=== PATIENT | male | born 1955 | race Caucasian/White ===

== ENCOUNTER 2017-03-04 00:05 | Emergency (ER) | payer OTHER ==
[2017-03-04] MEDS ORDERED: Tetracaine 0.5% 2 ML Bottle EYERT ONE (00:16)
[2017-03-04] MEDS ORDERED: Tetracaine 0.5% 2 ML Bottle ONE (00:18)
--- NOTE | 2017-03-04 00:25 | EDM.PDOC ---
ED HPI EYE COMPLAINT - General Chief Complaint: Eye Problems Stated Complaint: eye pain/burning Time Seen by Provider: 03/04/17 00:10 Source: Reports: Patient History Limitations: Reports: No limitations - History of Present Illness INITIAL COMMENTS - FREE TEXT/NARRATIVE: Bilateral eye pain and redness..Was using cutting torch today. No known injury or foreign body Timing/Duration: Reports: Hour(s): Location: both Quality: Reports: Burning Severity: moderate Context: Reports: welding arc ED ROS GENERAL - Review of Systems Review Of Systems: See Below HEENT: Reports: Eye pain ED EXAM GENERAL W FULL EYE - Physical Exam Exam: See Below Exam Limited By: No limitations General Appearance: alert, mild distress Conjunctiva & Sclera: bilateral: injected Cornea Exam: bilateral: normal appearance, examined with flourescein Extraocular Movements: bilateral: intact Pupils: normal accommodation Pupillary Size: bilateral: 5 mm Pupillary Reaction: bilateral: brisk Course - Orders/Labs/Meds Meds: Medications Discontinued Medications Generic Name Dose Route Start Last Admin Trade Name Leah PRN Reason Stop Dose Admin Tetracaine 0.25 ml 03/04/17 00:16 Pontocaine 0.5% Ophth Drops EYERT 03/04/17 00:17 ASDIRECTED ONE Tetracaine Confirm 03/04/17 00:18 Pontocaine 0.5% Ophth Drops Administered 03/04/17 00:19 Dose 2 ml .ROUTE .STK-MED ONE Departure - Departure Time of Disposition: 00:30 Disposition: Home, Self-Care 01 Clinical Impression: Conjunctivitis Qualifiers: Conjunctivitis type: other Laterality: bilateral Qualified Code(s): H10.89 - Other conjunctivitis Forms: ED Department Discharge Additional Instructions: Follow up in clinic
[2017-03-04 01:24] VITALS: BP 128/86
== END 2017-03-04 00:31 | disposition home or self-care (01) ==
LOC: LL.ED 00:05
DX: H10.89 Other conjunctivitis (principal)
CPT/HCPCS: 65220; 99283

== ENCOUNTER 2025-01-24 09:50 | Emergency (ER) | payer MEDICARE, MEDICAID ==
[2025-01-24 10:21] LABS: BASOPHILS ABSOLUTE AUTO 0.06 K/uL (0.00-0.20); BASOPHILS PERCENT AUTO 0.6 % (0.0-2.0); EOSINOPHILS ABSOLUTE AUTO 0.15 K/uL (0.00-0.50); EOSINOPHILS PERCENT AUTO 1.4 % (0.0-5.0); HEMATOCRIT 45.1 % (39.0-49.0); HEMOGLOBIN 14.9 g/dL (13.1-16.8); IMMATURE GRAN ABSOLUTE AUTO 0.02 10^3/uL (0.00-0.04); IMMATURE GRAN PERCENT AUTO 0.2 % (0.0-0.4); LYMPHOCYTES ABSOLUTE AUTO 1.75 K/uL (0.50-3.50); LYMPHOCYTES PERCENT AUTO 16.8 % (10.0-50.0); MEAN CORPUSCULAR HEMOGLOBIN 29.7 pg (28.2-33.3); MONOCYTES PERCENT AUTO 7.7 % (2.0-14.0); NEUTROPHILS ABSOLUTE AUTO 7.66 K/uL (1.40-7.00); NEUTROPHILS PERCENT AUTO 73.3 % (45.0-80.0); PLATELET COUNT,PLT 256 K/uL (150-350); RED BLOOD CELL COUNT 5.01 M/uL (4.33-5.41); RED CELL DISTRIBUTION WIDTH 12.7 % (11.2-14.1); WHITE BLOOD CELL COUNT,WBC 10.4 K/uL (4.0-10.2)
[2025-01-24 10:43] LABS: ALBUMIN 3.8 g/dL (3.4-5.0); ANION GAP 6.2 meq/L (7-15); BILIRUBIN TOTAL 0.7 mg/dL (0.2-1.0); CALCIUM 8.8 mg/dL (8.5-10.1); CARBON DIOXIDE,CO2 26.8 mmol/L (21.0-32.0); CREATININE 1.15 mg/dL (0.51-1.17); EST CRCL DRUG DOSING (CG) 68.42 mL/min; POTASSIUM,K 4.1 mmol/L (3.5-5.1); PROTEIN TOTAL,TP 6.9 g/dL (6.4-8.2)
[2025-01-24 11:14] LABS: APPEARANCE,URINE CLEAR (CLEAR); COLOR,URINE YELLOW (YELLOW)
[2025-01-24 11:15] LABS: BILIRUBIN,URINE NEGATIVE (NEGATIVE); GLUCOSE,URINE NEGATIVE (NEGATIVE); KETONES,URINE NEGATIVE (NEGATIVE); LEUKOCYTE ESTERASE,URINE NEGATIVE (NEGATIVE); NITRITE,URINE NEGATIVE (NEGATIVE); OCCULT BLOOD,URINE NEGATIVE (NEGATIVE); PROTEIN,URINE NEGATIVE (NEGATIVE); UROBILINOGEN,URINE 0.2 E.U./dL (0.2-1.0)
[2025-01-24] MEDS: Dicyclomine 20 MG Tab PO ONE (11:42)
[2025-01-24] MEDS: traMADol 50 MG Tab PO ONE (11:42)
== END 2025-01-24 11:45 | disposition home or self-care (01) ==
LOC: LL.ED 09:50
DX: R10.84 Generalized abdominal pain (principal)
CPT/HCPCS: 36415; 74019; 80053; 81003; 83605; 83690; 85025; 99284; A9270